=== PATIENT | female | born 1975 | race Caucasian/White ===

== ENCOUNTER 2017-04-03 09:58 | Emergency (ER) | payer MEDICAID ==
[2017-04-03 10:00] VITALS: BP 109/66; PULSE 73; RESP 20; TEMP 98.8; O2SAT 98
[2017-04-03] MEDS ORDERED: PROP60 PO (10:27)
[2017-04-03] MEDS ORDERED: CYMB60CA PO (10:27)
[2017-04-03] MEDS ORDERED: LAMI200T PO (10:27)
[2017-04-03] MEDS ORDERED: TRAZ50TA12 PO (10:27)
[2017-04-03] MEDS ORDERED: BUSP10TA PO (10:27)
--- NOTE | 2017-04-03 10:44 | PD ---
HPI . Here for viability testing Chief Complaint: Related Problem Time Seen by Provider: 10:44 Travel History International Travel<30 days: No Contact w/Intl Traveler<30days: No Traveled to known affect area: No History of Present Illness HPI 41-year-old female with history of bipolar disorder, migraine and polysubstance abuse here requesting a viability test. Patient is currently at [facility] in a detox program as she popped up highly positive for benzodiazepine. She is trying to be enrolled in their program for troubled females and needs viability testing. Apparently she's from [facility]] and had KNIFE MACHINE OPERATOR appointment scheduled for April 08. She tells me she is now here in this program and will have to find a local KNIFE MACHINE OPERATOR. She denies any vaginal discharge, bleeding, abdominal pain etc. PFSH Past Medical History Bipolar Disorder: Yes Hypertension: Yes Migraines: Yes ?: LMP: 02/22/17 Past Surgical History Section: Yes Ear Surgery: Yes (TUBES ) Oral Surgery: Yes (WISDOM TEETH ) Tonsillectomy: Yes (AND ADENOIDS) Other Surgery: Yes Social History Alcohol Use: Yes (occ) Tobacco Use: Yes (1 ppd ) Substance Use: Yes (FORMER BENZOS) Allergies-Medications (Allergen,Severity, Reaction): Coded Allergies: Azithromycin (Verified Allergy, Unknown, itch, 04/03/17) Latuda (Verified Allergy, Unknown, Anaphylaxis, 04/03/17) Levaquin (Verified Allergy, Unknown, hives, 04/03/17) Vistaril (Verified Allergy, Unknown, 04/03/17) Augmentin (Verified Adverse Reaction, Unknown, diarrhea, 04/03/17) Reported Meds & Prescriptions Reported Meds & Active Scripts Active Reported Trazodone (Trazodone HCl) 50 Mg Tab 100 Mg PO HS Cymbalta DR (Duloxetine HCl) 60 Mg Capdr 60 Mg PO DAILY Buspirone (Buspirone HCl) 10 Mg Tab 20 Mg PO TID Lamictal (Lamotrigine) 200 Mg Tab 200 Mg PO BID Inderal LA 24 HR (Propranolol HCl) 60 Mg Cap 20 Mg PO BID Review of Systems General / Constitutional: No: Fever Eyes: No: Visual changes HENT: No: Headaches Cardiovascular: No: Chest Pain or Discomfort Respiratory: No: Shortness of Breath Gastrointestinal: No: Abdominal Pain Genitourinary: No: Dysuria Musculoskeletal: No: Pain Skin: No Rash Neurologic: No: Weakness Psychiatric: No: Depression Endocrine: No: Polydipsia Hematologic/Lymphatic: No: Easy Bruising Physical Exam Narrative GENERAL: AAO x 3, no acute distress, Well-nourished, well-developed patient. SKIN: Warm and dry. No visible rashes or bruising. HEAD: Normocephalic and atraumatic. EYES: No scleral icterus. No injection or drainage. ENT: No nasal drainage noted. Mucous membranes pink. Airway patent. NECK: Supple, trachea midline. No JVD. CARDIOVASCULAR: Regular rate and rhythm without murmurs, gallops, or rubs. RESPIRATORY: Breath sounds equal bilaterally. No accessory muscle use. No rhonchi or rales. GASTROINTESTINAL: Abdomen soft, non-tender, nondistended. EXTREMITIES: No cyanosis or edema. BACK: Nontender without obvious deformity. No CVA tenderness. PSYCH: AAO x 3, normal affect. Data Data Last Documented VS Vital Signs Date Time Temp Pulse Resp B/P Pulse Ox O2 Delivery O2 Flow Rate FiO2 04/03/17 10:00 98.8 73 20 109/66 98 Room Air Orders Ed Urine Pregnancytest Poc (04/03/17 10:22) Beta Hcg (Quant/Titer) (04/03/17 10:37) Labs Laboratory Tests Test 04/03/17 10:45 Human Chorionic Gonadotropin, [address]13[address] MIU/ML Quant MDM Medical Decision Making Medical Screen Exam Complete: Yes Emergency Medical Condition: Yes Medical Record Reviewed: Yes Differential Diagnosis , polysubstance abuse, bipolar disorder Narrative Course 41-year-old female here for viability testing. Urine test is positive. I have ordered beta hCG. She does not have any abnormal symptoms, therefore I recommend that she follow- up with KNIFE MACHINE OPERATOR for further recommendations and testing. Case discussed with Dr. Palacio, she recommends Beta HCG and f/u with veneer sample maker I discussed with patient and [employer] employee. Diagnosis Primary Impression: Qualified Code: Z3A.49 - More than 42 weeks gestation of Additional Impression: Chronic prescription benzodiazepine use Patient Instructions: General Instructions Additional Instructions: Please return to emergency department if your symptoms return or worsen. Follow up with your primary care provider. Take vitamins daily. You will need to see your KNIFE MACHINE OPERATOR for ultrasound and further care. Med/Other Pt SpecificInfo: No Change to Meds Disposition: 01 DISCHARGE HOME Condition: Stable Sharifa Mo Apr 03, 2017 10:44
[2017-04-03 11:31] LABS: BETA HCG QUANT 23529 MIU/ML (0-5)
== END 2017-04-03 12:15 | disposition home or self-care (01) ==
LOC: NEPD 09:58
DX: O26.93 Pregnancy related conditions, unspecified, third trimester (principal); F19.10 Other psychoactive substance abuse, uncomplicated; F13.10 Sedative, hypnotic or anxiolytic abuse, uncomplicated; F17.210 Nicotine dependence, cigarettes, uncomplicated; Z3A.49 Greater than 42 weeks gestation of pregnancy
CPT/HCPCS: 84702; 84703; 99283